=== PATIENT | male | born 1940 ===

== ENCOUNTER → 2023-09-21 07:44 | Outpatient (REF) | payer MEDICARE, OTHER, SELFPAY | LOC: EMG 07:44 | PROVIDERS: ATTENDING PHYSICIAN Psychiatry & Neurology Neurology; FAMILY PHYSICIAN Family Medicine | DX: R20.0 Anesthesia of skin (principal); M54.17 Radiculopathy, lumbosacral region | CPT/HCPCS: 95886; 95911 ==